=== PATIENT | male | born 1990 | race American Indian/Alaskan Native ===

== ENCOUNTER 2020-02-19 14:12 | Outpatient (CLI) | payer OTHER ==
--- NOTE | 2020-02-19 14:57 | XRay Report ---
ABDOMEN 1 VIEW(S) INDICATION: CLEARANCE FOR MRI COMPARISON: None available. FINDINGS: Bowel gas pattern: Within normal limits. No dilated loops of large or small bowel. Free air: None. Calcified gallstones: None seen. Calcified urinary tract calculi: None seen. Additional Findings: Clips are present present within the lower abdomen-upper pelvis Skeletal structures: No acute abnormality. IMPRESSION: 1. No acute findings. Signer Name: Hernesto Samuels MD Signed: 02/19/2020 2:52 PM Workstation Name: [id number]
--- NOTE | 2020-02-19 16:29 | Magnetic Resonance Report ---
MRI BRAIN 02/19/2020 INDICATION / CLINICAL INFORMATION: MAIN. Tremors. Eval for MS TECHNIQUE: Multiplanar, multisequence MR images of the brain were obtained. COMPARISON: None available. FINDINGS: BRAIN / INTRACRANIAL CONTENTS: Unenhanced MR images of the brain demonstrate no evidence of intracran ial abnormality. Ventricles and sulci are normal in size and shape. There is no evidence of ischemic injury, demyelination, hemorrhage, or mass. There are no abnormal ex tra-axial fluid collections. EXTRACRANIAL: Unremarkable CRANIOCERVICAL JUNCTION: No significant abnormality. VASCULAR FLOW-VOIDS: No significant abnormality. IMPRESSION: Negative unenhanced MRI of the brain. Signer Name: Christopher Brock MD Signed: 02/19/2020 4:25 PM Workstation Name: [id number]
== END 2020-02-19 14:13 | disposition home or self-care (01) ==
LOC: MRI 14:12
PROVIDERS: ATTEND Psychiatry & Neurology Psychiatry
DX: G35 Multiple sclerosis (principal); R25.1 Tremor, unspecified
CPT/HCPCS: 70551; 74018